=== PATIENT | female | born 1945 | race Caucasian/White ===

== ENCOUNTER → 2016-06-30 | Outpatient (CLI) | payer BC ==
[~2016-06-30] MED LIST: ASPEC81 PO; ATEN-173 PO; BIOT1CAP3 PO; CALC250T8 PO; CIPR0.3S4 OPL; CYAN10005 PO; FERR1TAB61 PO; FLUO20CA35 PO; MULT-506 PO; NAPR1TAB9 PO; PRED1SUS3; SYN112 PO; ZNTUNK PO
[2016-06-30 19:42] LABS: THYROID STIMULATING HORMONE 0.052 uIu/ml (0.300-4.500)
== END | disposition home or self-care (01) ==
LOC: C.LABMFLN 14:02
PROVIDERS: ATTEND Nurse Practitioner
DX: E03.9 Hypothyroidism, unspecified (principal)

== ENCOUNTER → 2016-07-02 | Outpatient (CLI) | payer BC ==
[2016-07-02 17:52] LABS: BLOOD UREA NITROGEN 26 mg/dl (7-18); CALCIUM 9.9 mg/dl (8.5-10.1); CARBON DIOXIDE 29 mmol/L (21-32); CHLORIDE 100 mmol/L (98-107); GLUCOSE 91 mg/dl (70-99); POTASSIUM 4.2 mmol/L (3.5-5.1); SODIUM 135 mmol/L (136-145)
== END | disposition home or self-care (01) ==
LOC: C.LABPVFM 15:32
PROVIDERS: ATTEND Nurse Practitioner
DX: N28.9 Disorder of kidney and ureter, unspecified (principal)

== ENCOUNTER → 2016-09-08 | Outpatient (CLI) | payer BC ==
--- NOTE | 2016-09-08 10:20 | DIAGNOSTIC IMAGING REPORT ---
RIGHT KNEE 3 VIEWS CLINICAL HISTORY: B/L KNEE PAIN Right pain COMPARISON: None. DISCUSSION: Moderate degenerative changes noted in all major joint compartments. There is sclerosis of the articular services throughout. There is considerable degenerative changes of patellofemoral joints bilaterally. There is no evidence for soft tissue swelling. IMPRESSION: Considerable degenerative change of all major joint compartments. Electronically signed by: Blayne Cox M.D. 09/08/2016 10:18 AM Dictated Date/Time: 09/08/2016 10:17 AM
== END | disposition home or self-care (01) ==
LOC: C.RDSM 12:19
PROVIDERS: ATTEND Physician Assistant
DX: M25.561 Pain in right knee (principal); M25.562 Pain in left knee

== ENCOUNTER → 2016-10-08 | Outpatient (CLI) | payer BC ==
[2016-10-08 19:40] LABS: THYROID STIMULATING HORMONE 0.238 uIu/ml (0.300-4.500)
== END | disposition home or self-care (01) ==
LOC: C.LABMFLN 16:17
PROVIDERS: ATTEND Nurse Practitioner
DX: E03.9 Hypothyroidism, unspecified (principal)

== ENCOUNTER → 2016-12-28 | Outpatient (CLI) | payer BC ==
[2016-12-28 18:47] LABS: THYROID STIMULATING HORMONE 18.3 uIu/ml (0.300-4.500)
== END | disposition home or self-care (01) ==
LOC: C.LABMFLN 16:51
PROVIDERS: ATTEND Nurse Practitioner
DX: E03.9 Hypothyroidism, unspecified (principal)

== ENCOUNTER → 2017-04-22 | Outpatient (CLI) | payer BC ==
[2017-04-22 12:50] LABS: ESTIMATED AVERAGE GLUCOSE 120 mg/dl; HA1C FLAG Normal (Normal)
[2017-04-22 12:53] LABS: BLOOD UREA NITROGEN 25 mg/dl (7-18); BUN/CREATININE RATIO 21.3 (10-20); CALCIUM 8.9 mg/dl (8.5-10.1); CARBON DIOXIDE 30 mmol/L (21-32); CHLORIDE 102 mmol/L (98-107); CREATININE 1.16 mg/dl (0.60-1.20); GLUCOSE 101 mg/dl (70-99); POTASSIUM 3.9 mmol/L (3.5-5.1); SODIUM 136 mmol/L (136-145)
[2017-04-22 13:04] LABS: CHOLESTEROL 204 mg/dl (0-200); CHOLESTEROL/HDL RATIO 2.8; HDL CHOLESTEROL 72 mg/dl; LDL CHOLESTEROL CALCULATED 111 mg/dl; THYROID STIMULATING HORMONE 0.417 uIu/ml (0.300-4.500); TRIGLYCERIDES 107 mg/dl (0-150); VERY LOW DENSITY LIPOPROT CALC 21 mg/dl
== END | disposition home or self-care (01) ==
LOC: C.LABMFLN 10:37
PROVIDERS: ATTEND Nurse Practitioner
DX: E78.5 Hyperlipidemia, unspecified (principal); I10 Essential (primary) hypertension; R73.01 Impaired fasting glucose; E03.9 Hypothyroidism, unspecified

== ENCOUNTER → 2017-06-22 | Outpatient (CLI) | payer BC ==
--- NOTE | 2017-06-22 15:23 | MAMMOGRAPHY REPORT ---
BILATERAL DIGITAL SCREENING MAMMOGRAM TOMOSYNTHESIS WITH CAD: 06/22/2017 CLINICAL HISTORY: Routine screening. Patient has no complaints. TECHNIQUE: Breast tomosynthesis in addition to standard 2D mammography was performed. Current study was also evaluated with a Computer Aided Detection (CAD) system. COMPARISON: Comparison is made to exams dated: 03/26/2016 mammogram, 03/07/2015 mammogram, 4 mammogram, 03/06/2013 mammogram, and 02/08/2012 mammogram - [facility]. BREAST COMPOSITION: There are scattered areas of fibroglandular density in both breasts. FINDINGS: No suspicious masses, calcifications, or areas of architectural distortion are noted in ei ther breast. There has been no significant interval change compared to prior exams. IMPRESSION: ACR BI-RADS CATEGORY 1: NEGATIVE There is no mammographic evidence of malignancy. A 1 year screening mammogram is recommended. The pa tient will receive written notification of the results. Approximately 10% of breast cancers are not detected with mammography. A negative mammographic report should not delay biopsy if a clinically suggestive mass is present. Mary Henriquez M.D. /:06/22/2017 11:04:59 [employer]: Leidy KOWALSKI)(Ryan), [facility] letter sent: Normal 1/2 BI-RADS Code: ACR BI-RADS Category 1: Negative
== END ==
LOC: C.MAMM 10:46
PROVIDERS: ATTEND Nurse Practitioner
DX: Z12.31 Encounter for screening mammogram for malignant neoplasm of breast (principal)

== ENCOUNTER → 2017-12-06 | Outpatient (CLI) | payer BC ==
[2017-12-06 17:43] LABS: BLOOD UREA NITROGEN 27 mg/dl (7-18); CALCIUM 8.9 mg/dl (8.5-10.1); CARBON DIOXIDE 30 mmol/L (21-32); CHOLESTEROL 207 mg/dl (0-200); CREATININE 1.09 mg/dl (0.60-1.20); GLUCOSE 115 mg/dl (70-99); LDL CHOLESTEROL CALCULATED 102 mg/dl; POTASSIUM 4.2 mmol/L (3.5-5.1); SODIUM 139 mmol/L (136-145)
== END | disposition home or self-care (01) ==
LOC: C.LABPVFM 14:48
PROVIDERS: ATTEND Nurse Practitioner
DX: E78.5 Hyperlipidemia, unspecified (principal); I10 Essential (primary) hypertension; R73.01 Impaired fasting glucose; E03.9 Hypothyroidism, unspecified

== ENCOUNTER → 2017-12-06 | Outpatient (CLI) | payer BC | END | disposition home or self-care (01) | LOC: C.PAPS 19:04 | PROVIDERS: ATTEND Nurse Practitioner | DX: N95.1 Menopausal and female climacteric states (principal) ==

== ENCOUNTER 2019-02-12 16:08 | Inpatient (IN) ==
[2019-02-12] MEDS ORDERED: ONDANSETRON INJ 2 MG/ML 2 ML VIAL IV STA (17:03)
[2019-02-12] MEDS ORDERED: SODIUM CHLORIDE 0.9% 1000ML 1,000 ML IV ONE (17:03)
--- NOTE | 2019-02-12 17:16 | XRay Report ---
SINGLE VIEW CHEST CLINICAL HISTORY: Epigastric abdominal pain. FINDINGS: An AP, portable, upright chest radiograph is compared to study dated 02/04/2010. The examina tion is degraded by portable technique and patient rotation. A left subclavian central venous infusio n port is new from 2009. The heart is mildly enlarged and there is atherosclerotic calcification of t he thoracic aorta. The pulmonary vasculature is noncongested. Chronic interstitial thickening is mp lar to previous. No airspace consolidation or large pleural effusion is identified. Foci of scarring/ atelectasis are present in both lungs. Apical scarring is also noted. No pneumothorax is seen. The sk eletal structures are osteopenic. The bony thorax is grossly intact. A right shoulder arthroplasty is in place. IMPRESSION: Mild cardiomegaly with no active disease in the chest. Electronically signed by: Jama Ladd M.D. 02/12/2019 5:15 PM
[2019-02-12] MEDS ORDERED: ALBUTEROL HFA 8 GM INHALER INH ONE (18:51)
[2019-02-12] MEDS ORDERED: ALBUTEROL HFA 8 GM INHALER ONE (19:05)
[2019-02-12 19:10] LABS: Hematocrit (blood only) 19.6 % (37-47); Hemoglobin 6.7 g/dL (12.0-16.0); Mean Corpuscular Hemoglobin 33.2 pg (25-34); Mean Corpuscular Hgb Conc 34.2 g/dL (32-36); Mean Platelet Volume 9.2 fL (7.4-10.4); Platelet Count 185 K/uL (130-400); RDW Coefficient of Variation 14.5 % (11.5-14.5); RDW Standard Deviation 51.9 fL (36.4-46.3); Red Blood Count 2.02 M/uL (4.2-5.4); White Blood Count 12.59 K/uL (4.8-10.8)
[2019-02-12] MEDS ORDERED: SODIUM CHLORIDE 0.9% 250 ML IV PRN (19:12)
[2019-02-12 19:17] LABS: Alanine Aminotransferase 17 U/L (12-78); Albumin Level 3.2 gm/dl (3.4-5.0); Aspartate Aminotransferase 14 U/L (15-37); BUN Creatinine Ratio 11.3 (10-20); Blood Urea Nitrogen 11 mg/dl (7-18); Calcium 8.5 mg/dl (8.5-10.1); Carbon Dioxide 28 mmol/L (21-32); Chloride 97 mmol/L (98-107); Est GFR (African American) 69.2; Est GFR (Non-African American) 59.7; Glucose 83 mg/dl (70-99); Lipase 75 U/L (73-393); Magnesium 1.6 mg/dl (1.8-2.4); Potassium 3.8 mmol/L (3.5-5.1); Sodium 133 mmol/L (136-145)
[2019-02-12 19:21] LABS: Basophils # (auto) 0.01 K/uL (0-0.2); Basophils % (auto) 0.1 %; Eosinophils # (auto) 0.01 K/uL (0-0.5); Eosinophils % (auto) 0.1 %; Immature Granulocytes # (auto) 0.07 K/uL (0.00-0.02); Immature Granulocytes % (auto) 0.6 %; Lymphocytes # (auto) 1.56 K/uL (1.2-3.4); Lymphocytes % (auto) 12.4 %; Monocytes # (auto) 0.75 K/uL (0.11-0.59); Neutrophils # (auto) 10.19 K/uL (1.4-6.5); Neutrophils % (auto) 80.8 %; Toxic Granulation 1+
[2019-02-12] MEDS ORDERED: MAGNESIUM SULFATE / D5W 1 GM/100 ML BAG IV ONE (19:21)
[2019-02-12 19:23] LABS: Alkaline Phosphatase 87 U/L (45-117); Bilirubin,Total 0.4 mg/dl (0.2-1); Globulin 3.2 gm/dl (2.5-4.0); Total Protein 6.4 gm/dl (6.4-8.2); Troponin I < 0.015 ng/ml (0-0.045)
[2019-02-12] MEDS ORDERED: IOVERSOL 100ml IV PRN (19:44)
--- NOTE | 2019-02-12 20:01 | CT Scan Report ---
CT SCAN OF THE ABDOMEN AND PELVIS WITH IV CONTRAST CLINICAL HISTORY: Generalized abdominal pain. COMPARISON STUDY: Abdominal ultrasound dated 12/15/2015. TECHNIQUE: Following the IV administration of 93 cc of Optiray 320, CT scan of the abdomen and pelvi s is performed from the lung bases to the proximal femora. Images are reviewed in the axial, sagittal , and coronal planes. IV contrast was administered without complication. A dose lowering technique wa s utilized adhering to the principles of ALARA. CT DOSE: 247.06 mGy.cm FINDINGS: Lung bases: The heart is normal in size and without pericardial effusion. The coronary arteries are d ensely calcified. The lung bases are clear noting bibasilar scarring/atelectasis. Liver: The contrast-enhanced liver is normal in size, contour, and attenuation. There is no intrahepa tic biliary ductal dilatation. The hepatic veins and portal veins are patent. Gallbladder: Unremarkable. Spleen: Normal in size and attenuation. Pancreas: Moderately atrophic and grossly unremarkable. Adrenal glands: Unremarkable. Kidneys: The contrast enhanced kidneys demonstrate mild cortical atrophy and are without hydronephros is. The kidneys enhance symmetrically. Abdominal vasculature: The abdominal aorta is normal in course and caliber noting advanced atheroscle rotic calcification. Bowel: The gastric mucosa appears thickened and hyperemic. A left inguinal hernia contains a nonobstr ucted loop of small bowel. No bowel obstruction is seen. The small bowel loops are filled with fluid. No bowel wall thickening is identified. The appendix is well-visualized and normal. Peritoneum: There is no intraperitoneal free air or abdominal ascites. Lymphadenopathy: None. Pelvic viscera: The bladder, uterus, and adnexa are normal as imaged. A left inguinal hernia contains a loop of bowel. Skeletal structures: The skeletal structures are osteopenic. There is moderate lumbosacral spondylosi s as well as scoliosis. Grade 1 anterolisthesis is noted at L4-L5. No lytic or blastic lesions are se en. Soft tissues: The patient is cachectic. IMPRESSION: 1. There is fluid seen throughout the normal caliber small bowel loops. No bowel wall thickening is i dentified, and the appearance suggests a nonspecific enteritis. Clinical correlation will be required . 2. A left inguinal hernia contains a nonobstructed loop of small bowel. 3. The gastric mucosa appears thickened and hyperemic. Correlate clinically for evidence of gastritis . 4. Additional findings as above. Electronically signed by: Jama Ladd M.D. 02/12/2019 7:59 PM
[2019-02-12] MEDS ORDERED: PANTOprazole 80 MG in DEXTROSE 5% 100 ML IV ONE (20:15)
[2019-02-12 20:33] LABS: Appearance Urine Clear (Clear); Bilirubin Urine Negative (Negative); Blood Urine Negative (Negative); Color Urine Yellow; Epithelial Cell Urine Auto >30 /lpf (0-5); Glucose Urine UA Negative (Negative); Ketones Urine 1+ (Negative); Leukocyte Esterase Urine 1+ (Negative); Nitrite Urine Negative (Negative); Protein Urine Negative (Negative); RBC Urine Automated 0-4 /hpf (0-4); Specific Gravity Urine 1.023 (1.000-1.030); Urobilinogen Urine Negative (Negative); pH Urine 6.5 (4.5-7.5)
[2019-02-12 20:41] LABS: Mucus Urine Present (None Prsent)
[2019-02-12 20:42] LABS: Bacteria Urine Automated 1+ (Negative)
[2019-02-12] MEDS: PANTOprazole 40 MG in DEXTROSE 5% 100 ML IV SCH (21:06)
--- NOTE | 2019-02-12 22:39 | Emergency Department Note ---
Entered by Lesly Quesada acting as a scribe for History of Present Illness General Chief complaint: Abdominal Pain Stated complaint: NAUSEA, STOMACH PAIN Time Seen by Provider: 02/12/19 16:56 Source: patient History of Present Illness Provider complaint: Abdominal Pain Onset (ago): week(s) 1 Location: abdomen Radiation: non-radiation Pain Consistency: + intermittent Maximum Pain Intensity: 4 Associated symptoms: + loss of appetite and + nausea/vomiting (Positive nausea. Negative vomiting.) The patient is a 74 year old female who presents to the Emergency Room with complaints of intermittent abdominal pain that began 1 week ago. The patient states the pain does not radiate anywhere else on her body. The patient reports experiencing nausea and loss of appetite but denies any vomiting. The patient notes that her last chemotherapy was on January 29. The patient was referred here by the oncology center. They were concerned that her presentation today was more than just a reaction from her chemotherapy. Patient denies any fever. There has been no diarrhea. She has not had cough, cold or congestion. She denies any abdominal trauma. She has not noticed black or bloody stool. Home Medications Home Medications Medication Instructions Recorded Confirmed Type atenolol 25 mg tablet 25 mg PO DAILY #90 tab 11/20/18 02/12/19 Rx calcium citrate 250 mg 1 tab PO DAILY tab 11/20/18 02/12/19 History calcium-vitamin D3 200 unit tablet cyanocobalamin (vit B-12) 500 mcg 500 mcg PO DAILY #30 tab 11/20/18 02/12/19 Rx tablet ferrous gluconate 240 mg (27 mg 240 mg PO DAILY tab 11/20/18 02/12/19 History iron) tablet fluoxetine 20 mg capsule 20 mg PO DAILY #30 cap 11/20/18 02/12/19 Rx multivitamin tablet 1 tab PO DAILY 11/20/18 02/12/19 History levothyroxine 75 mcg tablet 75 mcg PO DAILY #30 tab 11/28/18 02/12/19 Rx ondansetron HCl [Zofran] 8 mg PO Q8 PRN 02/12/19 02/12/19 History promethazine 25 mg PO Q6 PRN 02/12/19 02/12/19 History Allergies Allergy/AdvReac Type Severity Reaction Status Date / Time No Known Allergies Allergy Unverified 02/12/19 21:55 Past Med/Surg History Medical History Coronary disease Renal insufficiency, mild Infiltrating duct adenocarcinoma Impaired fasting glucose Hypothyroidism Hypertension Dyslipidemia Depression with anxiety Anemia, chronic disease Surgical History History of tubal ligation History of shoulder surgery History of oral surgery tooth extraction History of dilation and curettage History of cataract surgery Family History Father Coronary heart disease Mother Lung cancer Social History Feels Safe at Home: Yes Smoking Status: Never smoker Review of Systems See HPI for pertinent positives & negatives. and A total of 10 systems reviewed and were otherwise negative Physical Exam Vital Signs Vital Signs - 24 hr 02/12/19 16:14 02/12/19 18:00 02/12/19 18:34 Temperature 36.7 C Temperature Source Oral Sepsis Recent Fever Within 48 Hours No Sepsis New/Unexplained Change in Mental Status No Sepsis Action Taken by Nursing No Action Required Pulse Rate 83 92 H Pulse Rate from SpO2 Sensor Respiratory Rate 20 20 Blood Pressure 142/80 H 141/78 H Blood Pressure Mean 100 99 Pulse Oximetry 100 Oxygen Delivery Method Room Air Room Air 02/12/19 18:38 02/12/19 18:45 02/12/19 18:46 Temperature Temperature Source Sepsis Recent Fever Within 48 Hours Sepsis New/Unexplained Change in Mental Status Sepsis Action Taken by Nursing Pulse Rate 79 77 82 Pulse Rate from SpO2 Sensor Respiratory Rate 12 16 20 Blood Pressure 140/79 Blood Pressure Mean 99 Pulse Oximetry Oxygen Delivery Method 02/12/19 19:00 02/12/19 19:15 02/12/19 20:00 Temperature Temperature Source Sepsis Recent Fever Within 48 Hours Sepsis New/Unexplained Change in Mental Status Sepsis Action Taken by Nursing Pulse Rate 78 76 83 Pulse Rate from SpO2 Sensor 84 Respiratory Rate 18 13 13 Blood Pressure 144/70 H 138/75 132/80 Blood Pressure Mean 94 96 97 Pulse Oximetry 100 Oxygen Delivery Method 02/12/19 20:15 02/12/19 20:30 02/12/19 20:31 Temperature Temperature Source Sepsis Recent Fever Within 48 Hours Sepsis New/Unexplained Change in Mental Status Sepsis Action Taken by Nursing Pulse Rate 76 75 76 Pulse Rate from SpO2 Sensor Respiratory Rate 19 11 L 9 L Blood Pressure 146/76 H Blood Pressure Mean 99 Pulse Oximetry Oxygen Delivery Method 02/12/19 20:45 02/12/19 21:00 02/12/19 21:15 Temperature Temperature Source Sepsis Recent Fever Within 48 Hours Sepsis New/Unexplained Change in Mental Status Sepsis Action Taken by Nursing Pulse Rate 76 75 99 H Pulse Rate from SpO2 Sensor Respiratory Rate 13 16 18 Blood Pressure 136/68 Blood Pressure Mean 90 Pulse Oximetry Oxygen Delivery Method 02/12/19 21:33 02/12/19 21:45 Temperature Temperature Source Sepsis Recent Fever Within 48 Hours Sepsis New/Unexplained Change in Mental Status Sepsis Action Taken by Nursing Pulse Rate 104 H 79 Pulse Rate from SpO2 Sensor Respiratory Rate 16 17 Blood Pressure Blood Pressure Mean Pulse Oximetry Oxygen Delivery Method GENERAL: Patient is in no acute distress. HEENT: No acute trauma, normocephalic atraumatic, mucous membranes dry, no nasal congestion, no scleral icterus. NECK: No stridor, no adenopathy, no meningismus, trachea is midline. LUNGS: Clear to auscultation bilaterally, no wheeze, no rhonchi, breath sounds equal. HEART: Subtle systolic murmur. Regular rate and rhythm. ABDOMEN: Soft, nontender, bowel sounds positive, no hernias, no peritonitis. EXTREMITIES: No cyanosis or edema, full range of motion of all the joints without pain or difficulty, no signs for acute trauma. NEUROLOGIC: Oriented x 3, no acute motor or sensory deficits, no focal weakness. SKIN: No rash, no jaundice, no diaphoresis. Rectal exam: Brown stool, heme positive. Course 1657: Past medical records reviewed. The patient was evaluated in room B02. A complete history and physical exam was performed. 1809: I reevaluated and discussed test results with the patient. 2010: I performed a rectal exam and there was brown stool which was heme positive. 2029: I spoke with Dr. Martins- Hospitalist about the patient's case and he will accept the patient for further evaluation. Administered Medications Pantoprazole Sodium 40 mg/ (Dextrose) 100 mls @ 20 mls/hr IV Q5H SARAH Stop: 03/14/19 20:29 Last Admin: 02/12/19 21:06 Dose: 20 mls/hr Documented by: [id number] Ioversol (Optiray 320 100ml) 93 ml IV ONCE PRN PRN Reason: Interaction Checking Stop: 02/16/19 19:43 Last Admin: 02/12/19 19:44 Dose: 93 ml Documented by: [id number] Discontinued Medications Albuterol (Ventolin Hfa) 3 puffs INH NOW ONE Stop: 02/12/19 18:52 Last Admin: 02/12/19 19:10 Dose: Not Given Documented by: [id number] Albuterol (Ventolin Hfa) Confirm Administered Dose 60 puffs .ROUTE .STK-MED ONE Stop: 02/12/19 19:06 Last Admin: 02/12/19 19:10 Dose: Not Given Documented by: [id number] Sodium Chloride (Nss 1000ml) 1,000 mls @ 999 mls/hr IV .Q1H1M ONE Stop: 02/12/19 18:03 Last Admin: 02/12/19 19:02 Dose: 999 mls/hr Documented by: [id number] Magnesium Sulfate/Dextrose (Magnesium Sulfate / D5w) 1 gm in 100 mls @ 100 mls/hr IV ONE ONE Stop: 02/12/19 20:20 Last Infusion: 02/12/19 21:01 Dose: 0 mls/hr Documented by: [id number] Admin: 02/12/19 20:01 Dose: 100 mls/hr Documented by: [id number] Pantoprazole Sodium 80 mg/ (Dextrose) 120 mls @ 480 mls/hr IV NOW ONE Stop: 02/12/19 20:29 Last Admin: 02/12/19 20:45 Dose: 480 mls/hr Documented by: [id number] Ondansetron HCl (Zofran) 4 mg IV NOW STA Stop: 02/12/19 17:04 Last Admin: 02/12/19 19:03 Dose: 4 mg Documented by: [id number] Medical Decision Making Differential Diagnosis Differential Diagnosis Includes: Dehydration, constipation, GI bleeding, anemia, bowel obstruction, pancreatitis, diverticulitis, viral illness, renal failure, electrolyte imbalance, pneumonia, PA. Medical Records Attestation: I reviewed the patient's medical records. Home Medications Current Medication List: was personally reviewed by me Laboratory Data Attestation: I reviewed the patient's lab results. Result diagrams: 02/12/19 18:40 02/12/19 18:40 Lab Results 10/07/19 10/07/19 10/07/19 Range/Units 18:40 18:40 19:22 WBC 12.59 H (4.8-10.8) K/uL RBC 2.02 L (4.2-5.4) M/uL Hgb 6.7 L* (12.0-16.0) g/dL Hct 19.6 L* (37-47) % MCV 97.0 (80-100) fL MCH 33.2 (25-34) pg MCHC 34.2 (32-36) g/dL RDW Std Deviation 51.9 H (36.4-46.3) fL RDW Coeff of Ricki 14.5 (11.5-14.5) % Plt Count 185 (130-400) K/uL MPV 9.2 (7.4-10.4) fL Immature Gran % (Auto) 0.6 % Neut % (Auto) 80.8 % Lymph % (Auto) 12.4 % Phelps % (Auto) 6.0 % Eos % (Auto) 0.1 % Baso % (Auto) 0.1 % Immature Gran # (Auto) 0.07 H (0.00-0.02) K/uL Neut # (Auto) 10.19 H (1.4-6.5) K/uL Lymph # (Auto) 1.56 (1.2-3.4) K/uL Phelps # (Auto) 0.75 H (0.11-0.59) K/uL Eos # (Auto) 0.01 (0-0.5) K/uL Baso # (Auto) 0.01 (0-0.2) K/uL Toxic Granulation 1+ Sodium 133 L (136-145) mmol/L Potassium 3.8 (3.5-5.1) mmol/L Chloride 97 L (98-107) mmol/L Carbon Dioxide 28 (21-32) mmol/L Anion Gap 8.0 (3-11) BUN 11 (7-18) mg/dl Creatinine 0.93 (0.6-1.2) mg/dl Est Cr Clr Drug Dosing Not Reportable Est GFR ( Amer) 69.2 Est GFR (Non-Af Amer) 59.7 BUN/Creatinine Ratio 11.3 (10-20) Glucose 83 (70-99) mg/dl Calcium 8.5 (8.5-10.1) mg/dl Magnesium 1.6 L (1.8-2.4) mg/dl Total Bilirubin 0.4 (0.2-1) mg/dl AST 14 L (15-37) U/L ALT 17 (12-78) U/L Alkaline Phosphatase 87 (45-117) U/L Troponin I < 0.015 (0-0.045) ng/ml Total Protein 6.4 (6.4-8.2) gm/dl Albumin 3.2 L (3.4-5.0) gm/dl Globulin 3.2 (2.5-4.0) gm/dl Albumin/Globulin Ratio 1.0 (0.9-2) Lipase 75 (73-393) U/L Urine Color Urine Appearance (Clear) Urine pH (4.5-7.5) Ur Specific Vernon (1.000-1.030) Urine Protein (Negative) Urine Glucose (UA) (Negative) Urine Ketones (Negative) Urine Blood (Negative) Urine Nitrite (Negative) Urine Bilirubin (Negative) Urine Urobilinogen (Negative) Ur Leukocyte Esterase (Negative) Urine WBC (Auto) (0-5) /hpf Urine RBC (Auto) (0-4) /hpf U Hyaline Cast (Auto) (0-5) /lpf U Epithel Cells (Auto) (0-5) /lpf Urine Bacteria (Auto) (Negative) Ur Renal Epithelial Cell Urine Mucus (None Prsent) Blood Type A Positive Antibody Screen NEGATIVE Crossmatch See Detail 02/12/19 Range/Units 20:00 WBC (4.8-10.8) K/uL RBC (4.2-5.4) M/uL Hgb (12.0-16.0) g/dL Hct (37-47) % MCV (80-100) fL MCH (25-34) pg MCHC (32-36) g/dL RDW Std Deviation (36.4-46.3) fL RDW Coeff of Ricki (11.5-14.5) % Plt Count (130-400) K/uL MPV (7.4-10.4) fL Immature Gran % (Auto) % Neut % (Auto) % Lymph % (Auto) % Phelps % (Auto) % Eos % (Auto) % Baso % (Auto) % Immature Gran # (Auto) (0.00-0.02) K/uL Neut # (Auto) (1.4-6.5) K/uL Lymph # (Auto) (1.2-3.4) K/uL Phelps # (Auto) (0.11-0.59) K/uL Eos # (Auto) (0-0.5) K/uL Baso # (Auto) (0-0.2) K/uL Toxic Granulation Sodium (136-145) mmol/L Potassium (3.5-5.1) mmol/L Chloride (98-107) mmol/L Carbon Dioxide (21-32) mmol/L Anion Gap (3-11) BUN (7-18) mg/dl Creatinine (0.6-1.2) mg/dl Est Cr Clr Drug Dosing Est GFR ( Amer) Est GFR (Non-Af Amer) BUN/Creatinine Ratio (10-20) Glucose (70-99) mg/dl Calcium (8.5-10.1) mg/dl Magnesium (1.8-2.4) mg/dl Total Bilirubin (0.2-1) mg/dl AST (15-37) U/L ALT (12-78) U/L Alkaline Phosphatase (45-117) U/L Troponin I (0-0.045) ng/ml Total Protein (6.4-8.2) gm/dl Albumin (3.4-5.0) gm/dl Globulin (2.5-4.0) gm/dl Albumin/Globulin Ratio (0.9-2) Lipase (73-393) U/L Urine Color Yellow Urine Appearance Clear (Clear) Urine pH 6.5 (4.5-7.5) Ur Specific Vernon 1.023 (1.000-1.030) Urine Protein Negative (Negative) Urine Glucose (UA) Negative (Negative) Urine Ketones 1+ H (Negative) Urine Blood Negative (Negative) Urine Nitrite Negative (Negative) Urine Bilirubin Negative (Negative) Urine Urobilinogen Negative (Negative) Ur Leukocyte Esterase 1+ H (Negative) Urine WBC (Auto) 10-30 H (0-5) /hpf Urine RBC (Auto) 0-4 (0-4) /hpf U Hyaline Cast (Auto) 5-10 H (0-5) /lpf U Epithel Cells (Auto) >30 H (0-5) /lpf Urine Bacteria (Auto) 1+ H (Negative) Ur Renal Epithelial Cell Not Reportable Urine Mucus Present A (None Prsent) Blood Type Antibody Screen Crossmatch Imaging Data Radiologist's Impression: Radiology results as stated below per my review and the radiologist's interpretation: SINGLE VIEW CHEST CLINICAL HISTORY: Epigastric abdominal pain. FINDINGS: An AP, portable, upright chest radiograph is compared to study dated 02/04/2010. The examination is degraded by portable technique and patient rotation. A left subclavian central venous infusion port is new from 2009. The heart is mildly enlarged and there is atherosclerotic calcification of the thora cic aorta. The pulmonary vasculature is noncongested. Chronic interstitial thickening is similar to previous. No airspace consolidation or large pleural effusion is identified. Foci of scarring/atelectasis are present in both lungs. Apical scarring is also noted. No pneumothorax is seen. The skeletal structures are osteopenic. The bony thorax is grossly intact. A right shoulder arthroplasty is in place. IMPRESSION: Mild cardiomegaly with no active disease in the chest. Electronically signed by: Jama Ladd M.D. 02/12/2019 5:[address] SCAN OF THE ABDOMEN AND PELVIS WITH IV CONTRAST CLINICAL HISTORY: Generalized abdominal pain. COMPARISON STUDY: Abdominal ultrasound dated 12/15/2015. TECHNIQUE: Following the IV administration of 93 cc of Optiray 320, CT scan of the abdomen and pelvis is performed from the lung bases to the proximal femora. Images are reviewed in the axial, sagittal, and coronal planes. IV contrast was administered without complication. A dose lowering technique was utilized adhering to the principles of ALARA. CT DOSE: 247.06 mGy.cm FINDINGS: Lung bases: The heart is normal in size and without pericardial effusion. The coronary arteries are densely calcified. The lung bases are clear noting bibasilar scarring/atelectasis. Liver: The contrast-enhanced liver is normal in size, contour, and attenuation. There is no intrahepatic biliary ductal dilatation. The hepatic veins and portal veins are patent. Gallbladder: Unremarkable. Spleen: Normal in size and attenuation. Pancreas: Moderately atrophic and grossly unremarkable. Adrenal glands: Unremarkable. Kidneys: The contrast enhanced kidneys demonstrate mild cortical atrophy and are without hydronephrosis. The kidneys enhance symmetrically. Abdominal vasculature: The abdominal aorta is normal in course and caliber noting advanced atherosclerotic calcification. Bowel: The gastric mucosa appears thickened and hyperemic. A left inguinal hernia contains a nonobstructed loop of small bowel. No bowel obstruction is seen. The small bowel loops are filled with fluid. No bowel wall thickening is identified. The appendix is well-visualized and normal. Peritoneum: There is no intraperitoneal free air or abdominal ascites. Lymphadenopathy: None. Pelvic viscera: The bladder, uterus, and adnexa are normal as imaged. A left inguinal hernia contains a loop of bowel. Skeletal structures: The skeletal structures are osteopenic. There is moderate lumbosacral spondylosis as well as scoliosis. Grade 1 anterolisthesis is noted at L4-L5. No lytic or blastic lesions are seen. Soft tissues: The patient is cachectic. IMPRESSION: 1. There is fluid seen throughout the normal caliber small bowel loops. No bowel wall thickening is identified, and the appearance suggests a nonspecific enteritis. Clinical correlation will be required. 2. A left inguinal hernia contains a nonobstructed loop of small bowel. 3. The gastric mucosa appears thickened and hyperemic. Correlate clinically for evidence of gastritis. 4. Additional findings as above. Electronically signed by: Jama Ladd M.D. 02/12/2019 7:59 PM ECG Data Attestation: I personally reviewed and interpreted this ECG as follows: Indication: abdominal pain Rate (beats per minute): 75 Rhythm: normal sinus Findings: + other (QTC 439) and + nonspecific-ST abn; no ST elevation Blood Pressure Blood Pressure Findings: Elevated blood pressure Blood Pressure Disposition: further management by hospitalist [facility] Narrative There is a mild leukocytosis at 12,000, this could be consistent with infection or just her pain. The patient is quite anemic with a hemoglobin of 6.7. I did perform a rectal exam, the stool was brown and heme positive. There is no kidney failure. Magnesium is low at 1.6. No concerning liver enzyme elevation. No evidence for pancreatitis. EKG shows a sinus rhythm, no acute ischemia. Cardiac enzyme testing x1 is not consistent with acute cardiac injury. Urinalysis shows some contamination, no infection. Blood type is A+. Chest film does not show free air or pneumonia. Abdominal and pelvis CT suggests an ileus. No bowel obstruction. No abscess seen. Some gastritis was suspected. No acute surgical process by CT imaging. On exam, the patient did not really have a tender abdomen, there was clearly no peritonitis. Patient received IV saline for hydration. She was given a bolus of IV Protonix and placed on a Protonix drip. She received IV magnesium and IV Zofran. Blood was ordered for transfusion but not given while in the ED. The patient presents with abdominal discomfort. She was dehydrated on exam. She is anemic, this is likely from her chemotherapy in addition to some GI bleeding-her stool is heme positive. Given her findings and history, I do think a hospitalization is warranted. I spoke to the patient and case management. The on-call hospitalist was consulted. Impression & Plan Diffuse abdominal pain, Anemia, Heme positive stool, Status post chemotherapy, Hypomagnesemia Critical Care Time Critical Care Time: Yes Total Critical Care Time: 36 I have personally spent 36 minutes of critical care time in the direct management of this patient. This includes bedside care, interpretation of diagnostic studies, and testing, discussion with consultants, patient, and family members, and other required patient management activities. This 36 minutes is in excess of all separately billable procedures. Discharge Plan Visit Data Chief Complaint: Abdominal Pain Stated Complaint: NAUSEA, STOMACH PAIN ED Provider: Jama Esquivel Discharge Problem: Diffuse abdominal pain, Anemia, Heme positive stool, Status post chemotherapy, Hypomagnesemia Forms Stand Alone Forms: Call Back Authorization, [facility] Prescriptions Prescriptions: No Action calcium citrate-vitamin D3 [Citracal Regular] 250 mg calcium- 200 unit tablet 1 tab PO DAILY RF: 0 ferrous gluconate 240 mg (27 mg iron) tablet 240 mg PO DAILY RF: 0 multivitamin [Daily Multiple] tablet 1 tab PO DAILY RF: 0 atenolol 25 mg tablet 25 mg PO DAILY Qty: 90 RF: 0 cyanocobalamin (vitamin B-12) 500 mcg tablet 500 mcg PO DAILY Qty: 30 RF: 0 fluoxetine 20 mg capsule 20 mg PO DAILY Qty: 30 RF: 0 levothyroxine 75 mcg tablet 75 mcg PO DAILY Qty: 30 RF: 5 ondansetron HCl [Zofran] 8 mg tablet 8 mg PO Q8 PRN (Reason: Nausea) RF: 0 promethazine 25 mg tablet 25 mg PO Q6 PRN (Reason: Nausea) RF: 0 Discharge Problem: Anemia Qualifiers: Anemia type: unspecified type Qualified Code(s): D64.9 - Anemia, unspecified The scribe's documentation has been prepared under my direction and personally reviewed by me in its entirety. I confirm that the note above accurately reflects all work, treatment, procedures, and medical decision making performed by me.
--- NOTE | 2019-02-12 23:49 | History & Physical Report ---
Date of Service February 12, 2019 Assessment & Plan (1) Anemia: 1 unit PRBCs ordered recheck HGB in am (2) Heme positive stool: She may have developed gastritis or ulcer, as her pain was located in epigastric region. IV Protonix given. 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 Pain and nausea control ordered. DVT prophylaxis = SCDs, holding pharmacologic due to anemia and heme pos stool. (4) Hypertension: Stable (5) Hypothyroidism: Continue levothyroxine History of Present Illness 74 y/o female presented to the ED with intermittent abdominal pain of 1 week duration. She has had nausea and loss of appetite, but reports that this is common after chemo treatments. She has not had F/C, cough, diarrhea, chest pain or SOB. She does report feeling tired. No reported black stools or bloody stool. In the ED her stool was heme Pos. Primary Care Provider: ANITA Storm Allergies Allergy/AdvReac Type Severity Reaction Status Date / Time No Known Allergies Allergy Unverified 02/12/19 21:55 Home Medications Home Medications Medication Instructions Recorded Confirmed Type atenolol 25 mg tablet 25 mg PO DAILY #90 tab 11/20/18 02/12/19 Rx calcium citrate 250 mg 1 tab PO DAILY tab 11/20/18 02/12/19 History calcium-vitamin D3 200 unit tablet cyanocobalamin (vit B-12) 500 mcg 500 mcg PO DAILY #30 tab 11/20/18 02/12/19 Rx tablet ferrous gluconate 240 mg (27 mg 240 mg PO DAILY tab 11/20/18 02/12/19 History iron) tablet fluoxetine 20 mg capsule 20 mg PO DAILY #30 cap 11/20/18 02/12/19 Rx multivitamin tablet 1 tab PO DAILY 11/20/18 02/12/19 History levothyroxine 75 mcg tablet 75 mcg PO DAILY #30 tab 11/28/18 02/12/19 Rx ondansetron HCl [Zofran] 8 mg PO Q8 PRN 02/12/19 02/12/19 History promethazine 25 mg PO Q6 PRN 02/12/19 02/12/19 History Past Med/Surg History Medical History Coronary disease Renal insufficiency, mild Infiltrating duct adenocarcinoma Impaired fasting glucose Hypothyroidism Hypertension Dyslipidemia Depression with anxiety Anemia, chronic disease Surgical History History of tubal ligation History of shoulder surgery History of oral surgery tooth extraction History of dilation and curettage History of cataract surgery Family History Father Coronary heart disease Mother Lung cancer Social History Feels Safe at Home: Yes Smoking Status: Never smoker Review of Systems Review of Systems: NEEDS EDITING Constitutional- no fever; no weight loss Eyes- no acute visual changes ENT- no sinus drainage; no pharyngitis Pulmonary- no cough, no wheezing, no shortness of breath Cardiac- no chest pain, no palpitations, no orthopnea, no dependent edema GI- As in HPI - no dysuria, no hematuria Musculoskeletal- no arthralgias, no myalgias Derm- no rashes, no new skin lesions, no changing skin lesions Hematologic- no unusual bruising, no unusual bleeding Lymphatics- no adenopathy Endocrine- no polyuria or polydipsia; no heat or cold intolerance Neuro- no headaches, no focal neurologic symptoms Psych- no depression. She is anxious at times. Physical Exam Physical Exam: NEEDS EDITING General- adult female, NAD Head- atraumatic Eyes- PERRL, EOMI, anicteric ENT- oropharynx clear Neck- supple, no JVD, no adenopathy, no thyromegaly. Lungs- clear to auscultation, No rales, rhonchi, or wheezes. Heart- regular rhythm; no murmur, no gallop, no rub appreciated Abdomen- normal bowel sounds, soft, nontender. Extremities- no pretibial edema, no calf tenderness; peripheral pulses intact Neuro- alert, oriented x 3; PERRL, EOMI; senior lead project manager II-XII grossly intact, Non-focal. Skin- warm & dry Results & Data Vital Signs (Past 12 Hours) Vital Signs Temp Pulse Pulse Resp BP BP Pulse Ox 02/12/19 23:34 36.4 C L 72 13 129/66 97 02/12/19 22:45 71 12 02/12/19 22:30 72 12 02/12/19 22:15 72 10 L 02/12/19 22:00 84 15 02/12/19 21:45 79 17 02/12/19 21:33 104 H 16 02/12/19 21:15 99 H 18 02/12/19 21:00 75 16 136/68 02/12/19 20:45 76 13 02/12/19 20:31 76 9 L 02/12/19 20:30 75 11 L 146/76 H 02/12/19 20:15 76 19 02/12/19 20:00 83 13 132/80 100 02/12/19 19:15 76 13 138/75 02/12/19 19:00 78 18 144/70 H 02/12/19 18:46 82 20 02/12/19 18:45 77 16 140/79 02/12/19 18:38 79 12 02/12/19 18:34 92 H 20 141/78 H 02/12/19 16:14 36.7 C 83 20 142/80 H 100 Laboratory Results Laboratory Results WBC 12.59 K/uL (4.8-10.8) H 02/12/19 18:40 RBC 2.02 M/uL (4.2-5.4) L 02/12/19 18:40 Hgb 6.7 g/dL (12.0-16.0) L* 02/12/19 18:40 Hct 19.6 % (37-47) L* 02/12/19 18:40 MCV 97.0 fL (80-100) 02/12/19 18:40 MCH 33.2 pg (25-34) 02/12/19 18:40 MCHC 34.2 g/dL (32-36) 02/12/19 18:40 RDW Std Deviation 51.9 fL (36.4-46.3) H 02/12/19 18:40 RDW Coeff of Ricki 14.5 % (11.5-14.5) 02/12/19 18:40 Plt Count 185 K/uL (130-400) 02/12/19 18:40 MPV 9.2 fL (7.4-10.4) 02/12/19 18:40 Immature Gran % (Auto) 0.6 % 02/12/19 18:40 Neut % (Auto) 80.8 % 02/12/19 18:40 Lymph % (Auto) 12.4 % 02/12/19 18:40 Door % (Auto) 6.0 % 02/12/19 18:40 Eos % (Auto) 0.1 % 02/12/19 18:40 Baso % (Auto) 0.1 % 02/12/19 18:40 Immature Gran # (Auto) 0.07 K/uL (0.00-0.02) H 02/12/19 18:40 Neut # (Auto) 10.19 K/uL (1.4-6.5) H 02/12/19 18:40 Lymph # (Auto) 1.56 K/uL (1.2-3.4) 02/12/19 18:40 Door # (Auto) 0.75 K/uL (0.11-0.59) H 02/12/19 18:40 Eos # (Auto) 0.01 K/uL (0-0.5) 02/12/19 18:40 Baso # (Auto) 0.01 K/uL (0-0.2) 02/12/19 18:40 Toxic Granulation 1+ 02/12/19 18:40 Sodium 133 mmol/L (136-145) L 02/12/19 18:40 Potassium 3.8 mmol/L (3.5-5.1) 02/12/19 18:40 Chloride 97 mmol/L (98-107) L 02/12/19 18:40 Carbon Dioxide 28 mmol/L (21-32) 02/12/19 18:40 Anion Gap 8.0 (3-11) 02/12/19 18:40 BUN 11 mg/dl (7-18) 02/12/19 18:40 Creatinine 0.93 mg/dl (0.6-1.2) 02/12/19 18:40 Est Cr Clr Drug Dosing Not Reportable 02/12/19 18:40 Est GFR ( Amer) 69.2 02/12/19 18:40 Est GFR (Non-Af Amer) 59.7 02/12/19 18:40 BUN/Creatinine Ratio 11.3 (10-20) 02/12/19 18:40 Glucose 83 mg/dl (70-99) 02/12/19 18:40 Calcium 8.5 mg/dl (8.5-10.1) 02/12/19 18:40 Magnesium 1.6 mg/dl (1.8-2.4) L 02/12/19 18:40 Total Bilirubin 0.4 mg/dl (0.2-1) 02/12/19 18:40 AST 14 U/L (15-37) L 02/12/19 18:40 ALT 17 U/L (12-78) 02/12/19 18:40 Alkaline Phosphatase 87 U/L (45-117) 02/12/19 18:40 Troponin I < 0.015 ng/ml (0-0.045) 02/12/19 18:40 Total Protein 6.4 gm/dl (6.4-8.2) 02/12/19 18:40 Albumin 3.2 gm/dl (3.4-5.0) L 02/12/19 18:40 Globulin 3.2 gm/dl (2.5-4.0) 02/12/19 18:40 Albumin/Globulin Ratio 1.0 (0.9-2) 02/12/19 18:40 Lipase 75 U/L (73-393) 02/12/19 18:40 Urine Color Yellow 02/12/19 20:00 Urine Appearance Clear (Clear) 02/12/19 20:00 Urine pH 6.5 (4.5-7.5) 02/12/19 20:00 Ur Specific [place] 1.023 (1.000-1.030) 02/12/19 20:00 Urine Protein Negative (Negative) 02/12/19 20:00 Urine Glucose (UA) Negative (Negative) 02/12/19 20:00 Urine Ketones 1+ (Negative) H 02/12/19 20:00 Urine Blood Negative (Negative) 02/12/19 20:00 Urine Nitrite Negative (Negative) 02/12/19 20:00 Urine Bilirubin Negative (Negative) 02/12/19 20:00 Urine Urobilinogen Negative (Negative) 02/12/19 20:00 Ur Leukocyte Esterase 1+ (Negative) H 02/12/19 20:00 Urine WBC (Auto) 10-30 /hpf (0-5) H 02/12/19 20:00 Urine RBC (Auto) 0-4 /hpf (0-4) 02/12/19 20:00 U Hyaline Cast (Auto) 5-10 /lpf (0-5) H 02/12/19 20:00 U Epithel Cells (Auto) >30 /lpf (0-5) H 02/12/19 20:00 Urine Bacteria (Auto) 1+ (Negative) H 02/12/19 20:00 Ur Renal Epithelial Cell Not Reportable 02/12/19 20:00 Urine Mucus Present (None Prsent) A 02/12/19 20:00 Blood Type A Positive 02/12/19 19:22 Antibody Screen NEGATIVE 02/12/19 19:22 Crossmatch See Detail 02/12/19 19:22 Code Status & VTE Plan VTE Prophylaxis Plan VTE Prophylaxis will be ordered: Yes PG Care Time/CCT Total # of Minutes Spent Total Time Spent: 60 Total Time Spent with Patient: Total time spent is greater than 50% in coordination of care (as documented) at patient's floor/unit and/or counseling patient: (1) Anemia Anemia type: unspecified type Qualified Code(s): D64.9 - Anemia, unspecified
[2019-02-13] MEDS ORDERED: MoRPHine SULFATE 2 MG/ML CARP IV PRN (00:16)
[2019-02-13] MEDS ORDERED: SODIUM CHLORIDE 0.9% 250 ML IV PRN (00:16)
[2019-02-13] MEDS ORDERED: ACETAMINOPHEN 325 MG TAB PO PRN (00:16)
[2019-02-13] MEDS ORDERED: ONDANSETRON INJ 2 MG/ML 2 ML VIAL IV PRN (00:16)
[2019-02-13] MEDS ORDERED: LORazepam 0.5 MG/1 ML VIAL IV PRN (00:16)
[2019-02-13] MEDS ORDERED: MoRPHine SULFATE 4 MG/ML 1 ML CARP\\VIAL IV PRN (00:16)
[2019-02-13] MEDS: PANTOprazole 40 MG in DEXTROSE 5% 100 ML IV SCH ×5 (01:45→21:03)
[2019-02-13] MEDS: HEPARIN 100 UNIT/ML 5ML FLUSH FLUSH PRN ×2 (05:05→05:53)
[2019-02-13] MEDS: LEVOTHYROXINE SODIUM 75 MCG TABLET PO SCH (06:29)
[2019-02-13 06:33] LABS: Hematocrit (blood only) 22.3 % (37-47); Hemoglobin 7.9 g/dL (12.0-16.0); Mean Corpuscular Hemoglobin 33.5 pg (25-34); Mean Corpuscular Hgb Conc 35.4 g/dL (32-36); Mean Corpuscular Volume 94.5 fL (80-100); Mean Platelet Volume 9.5 fL (7.4-10.4); Platelet Count 153 K/uL (130-400); RDW Coefficient of Variation 15.7 % (11.5-14.5); RDW Standard Deviation 52.5 fL (36.4-46.3); Red Blood Count 2.36 M/uL (4.2-5.4); White Blood Count 9.85 K/uL (4.8-10.8)
[2019-02-13 07:10] LABS: BUN Creatinine Ratio 8.7 (10-20); Creatinine Clr Calc Pharmacy 45.5 ml/min; Est GFR (African American) 76.1; Est GFR (Non-African American) 65.6; Magnesium 1.8 mg/dl (1.8-2.4); Potassium 3.7 mmol/L (3.5-5.1)
[2019-02-13] MEDS ORDERED: INFLUENZA ADMINISTRATION CHARGE ONE (08:15)
[2019-02-13] MEDS ORDERED: INFLUENZA VACCINE HIGH DOSE 65+ 0.5 ML SYR IM ONE (08:15)
[2019-02-13] MEDS: FLUOXETINE HCL 20 MG CAP PO SCH (10:15)
[2019-02-13] MEDS: ATENOLOL 25 MG TABLET PO SCH (10:15)
[2019-02-13] MEDS: FERROUS GLUCONATE 324 MG TAB PO SCH (10:15)
--- NOTE | 2019-02-13 10:28 | Gastrointestinal Consultation ---
Date of Consultation February 13, 2019 Assessment & Plan (1) Anemia: Likely related to chemotherapy. Patient has been transfused 1 unit PRBCs. H/H presently 7.9/22.3. Heme positive, however has had diarrhea since chemotherapy. No gross GI bleeding. -Monitor H/H -Continue to monitor for gross GI bleeding -Protonix 40 mg BID to prophylactically treat for gastritis/PUD -Would avoid endoscopic evaluation at present due to deconditioning and lack of overt bleeding. Should endoscopy become necessary, can facilitate as an outpatient. Thank you for allowing us to participate in the care of this patient. If you should have any further questions or concerns, do not hesitate to contact us at extension [phone] or [phone]. Present on Admission?: Yes Supervising Physician Co-Signing Physician Notes I personally evaluated the patient and agree with the findings as documented by YOHANA Cantu Exam: abd: soft, nt, nd History of Present Illness Reason for Consultation: anemia Attending Physician: Odilon Dickson History of Present Illness Patient is a 74 yo female with a PMH of CAD, HTN, hypothyroidism, HLD, depression, anxiety, who is currently undergoing chemotherapy for breast cancer. She recently completed a recent round of chemotherapy after which she was dehydrated and experienced nausea, vomiting, & diarrhea. She reports that her nausea, vomiting, and diarrhea are resolved at present. She is eager to go home. Her H/H is presently 7.9/22.3 which per chart review appears to be consistent with each of her chemo treatments. After experiencing diarrhea, she had a positive hemoccult. Because of this GI has been asked to evaluate the patient's anemia. She denies melena or hematochezia. Denies hematemesis. She denies abdominal pain, heartburn, reflux. She denies family history of GI malignancy. She denies NSAID use. Allergies Allergy/AdvReac Type Severity Reaction Status Date / Time No Known Allergies Allergy Unverified 02/12/19 21:55 Home Medications Home Medications Medication Instructions Recorded Confirmed Type atenolol 25 mg tablet 25 mg PO DAILY #90 tab 11/20/18 02/12/19 Rx calcium citrate 250 mg 1 tab PO DAILY tab 11/20/18 02/12/19 History calcium-vitamin D3 200 unit tablet cyanocobalamin (vit B-12) 500 mcg 500 mcg PO DAILY #30 tab 11/20/18 02/12/19 Rx tablet ferrous gluconate 240 mg (27 mg 240 mg PO DAILY tab 11/20/18 02/12/19 History iron) tablet fluoxetine 20 mg capsule 20 mg PO DAILY #30 cap 11/20/18 02/12/19 Rx multivitamin tablet 1 tab PO DAILY 11/20/18 02/12/19 History levothyroxine 75 mcg tablet 75 mcg PO DAILY #30 tab 11/28/18 02/12/19 Rx ondansetron HCl [Zofran] 8 mg PO Q8 PRN 02/12/19 02/12/19 History promethazine 25 mg PO Q6 PRN 02/12/19 02/12/19 History Patient History Medical History Coronary disease Renal insufficiency, mild Infiltrating duct adenocarcinoma Impaired fasting glucose Hypothyroidism Hypertension Dyslipidemia Depression with anxiety Anemia, chronic disease Surgical History History of tubal ligation History of shoulder surgery History of oral surgery tooth extraction History of dilation and curettage History of cataract surgery Family History Father Coronary heart disease Mother Lung cancer Social History Preferred Language: Bangladeshi Communication Ability: Effective Work Car Operator Required: No Beliefs That Will Affect Care: None marital status: Current Living Situation: Spouse Feels Safe at Home: Yes Smoking Status: Never smoker Hx Alcohol Use: Yes Alcohol type: wine Hx Substance Use: No Review of Systems Constitutional: no fever and no chills Eyes: no acute issues Ear, Nose, Mouth, Throat: no acute issues Respiratory: no cough and no dyspnea Cardiovascular: no chest pain Gastrointestinal: no abdominal pain, no bloating, no nausea, no vomiting, no hematemesis, no diarrhea/loose stools, no blood in stools and no melena Musculoskeletal: no acute issues Integumentary: no acute issues Psychiatric: no acute issues Endocrine: + fatigue Physical Exam Constitutional: WD/WN, vitals as above Eyes: PERRL, normal conjunctivae ENMT: external ear and nose normal, oropharynx normal Respiratory: normal respiratory effort, lungs clear to auscultation Cardiovascular: Rate/Rhythm: regular rate and regular rhythm Gastrointestinal (Abdomen): normal bowel sounds, soft, nontender, no hepatosplenomegaly Musculoskeletal: no clubbing or cyanosis Skin: no rashes, warm and dry Psychiatric: A+Ox3, euthymic affect Results & Data Vital Signs (Past 12 Hours) Vital Signs Temp Pulse Pulse Pulse Resp BP BP 02/13/19 07:38 36.5 C 65 20 129/68 02/13/19 04:05 36.7 C 67 18 134/58 L 02/13/19 04:00 36.7 C 67 18 134/58 L 02/13/19 03:45 36.4 C L 71 18 115/67 02/13/19 02:45 36.4 C L 71 16 127/74 02/13/19 02:15 36.3 C L 68 18 130/72 02/13/19 02:00 36.5 C 64 16 128/71 02/13/19 01:39 36.7 C 73 16 146/72 H 02/13/19 00:16 72 02/13/19 00:05 36.5 C 78 16 02/12/19 23:34 36.4 C L 72 13 02/12/19 22:45 71 12 02/12/19 22:30 72 12 BP Pulse Ox 02/13/19 07:38 100 02/13/19 04:05 97 02/13/19 04:00 97 02/13/19 03:45 97 02/13/19 02:45 98 02/13/19 02:15 98 02/13/19 02:00 99 02/13/19 01:39 98 02/13/19 00:16 02/13/19 00:05 147/80 H 100 02/12/19 23:34 129/66 97 02/12/19 22:45 02/12/19 22:30 PG Care Time/CCT Total # of Minutes Spent Total Time Spent with Patient: Total time spent is greater than 50% in coordination of care (as documented) at patient's floor/unit and/or counseling patient: (1) Anemia Anemia type: unspecified type Qualified Code(s): D64.9 - Anemia, unspecified
[2019-02-13 13:17] LABS: Hematocrit (blood only) 23.9 % (37-47); Hemoglobin 8.5 g/dL (12.0-16.0)
[2019-02-13 18:49] LABS: Hematocrit (blood only) 23.8 % (37-47); Hemoglobin 8.4 g/dL (12.0-16.0)
--- NOTE | 2019-02-13 20:31 | Hospitalist Progress Note ---
Date of Service February 13, 2019 Assessment & Plan (1) Acute blood loss anemia: Heme+ stool, abd pain, drop in Hb to 6.9 in context of chronic anemia (baseline 8-9 Hb) - concerning for GI blood loss - perhaps gastritis vs PUD vs other. Seen by GI - no EGD planned; treat empirically. Currently on PPI drip; transition to PO PPI in am. Rx 40mg BID of protonix at discharge +/- carafate x 1 week. s/p 1unit PRBCs overnight - tolerated well. Started on clears today. Advance to full liquids in AM if stable H/H. Cont serial H/H's. Iron at d/c. (2) Acute on chronic anemia: as above in "acute blood loss anemia" baseline Hb about 8-9. (3) Hypomagnesemia: s/p replacement level today wnl (4) Heme positive stool: suspect upper GI source as noted above PPI EGD deferred by GI for now serial H/H's (5) Diffuse abdominal pain: gastritis vs PUD vs other. IMPROVED. serial exams. PPI. clear liquid diet today. CT abd/pelvis with hyperemic gastric wall - this could be suggestive of gastritis. Also with ? enteritis but not having diarrhea at this time. Did have diarrhea at home potentially from recent chemo for breast ca. Supportive care. (6) Hypothyroidism: TSH was mildly low in June Recommend repeat as outpatient (7) Hypertension: cont atenolol controlled (8) Breast cancer: followed by [facility] has appt with [facility] tomorrow (9) Chronic kidney disease, stage 3a: Cr stable today Baseline CrCl 40s (10) DVT prophylaxis: SCDs pebbles updated at bedside today anticipate d/c in am if H and H's are stable and no abd pain/evidence of GI bleeding Subjective patient denies abdominal pain. no nausea or emesis. tolerating clears. seen by GI - no EGD planned. denies use of NSAIDs or aspirin. patient quite upset - states "I have to get out of here. I have an important appointment at [facility] tomorrow that I cannot miss." daughters (2) updated at bedside about 1830 today. Review of Systems Constitutional: no fever Respiratory: no dyspnea Cardiovascular: no chest pain, no orthopnea, no paroxysmal nocturnal dyspnea and no edema Gastrointestinal: no abdominal pain, no nausea and no vomiting Physical Exam Constitutional: + thin; no acute distress ENMT: external ear and nose normal, oropharynx normal Respiratory: normal respiratory effort, lungs clear to auscultation Cardiovascular: Rate/Rhythm: regular rate and regular rhythm Heart Sounds: normal S1 and normal S2; no murmur Vessels: posterior tibial pulses present and dorsalis pedis pulses present; no JVD Extremities: no edema Gastrointestinal (Abdomen): normal bowel sounds, soft, nontender, no hepatosplenomegaly Psychiatric: Orientation: alert Results & Data Vital Signs (Past 12 Hours) Vital Signs Temp Pulse Resp BP BP Pulse Ox 02/13/19 19:33 36.9 C 66 11 L 123/65 99 02/13/19 15:08 36.4 C L 64 20 115/67 98 02/13/19 11:06 36.7 C 63 16 130/67 99 Laboratory Results Laboratory Results - last 24 hr 02/12/19 02/12/19 02/13/19 19:22 20:00 05:57 WBC 9.85 RBC 2.36 L Hgb 7.9 L Hct 22.3 L MCV 94.5 MCH 33.5 MCHC 35.4 RDW Std Deviation 52.5 H RDW Coeff of Ricki 15.7 H Plt Count 153 MPV 9.5 Sodium Potassium Chloride Carbon Dioxide Anion Gap BUN Creatinine Est Cr Clr Drug Dosing Est GFR ( Amer) Est GFR (Non-Af Amer) BUN/Creatinine Ratio Glucose Calcium Magnesium Urine Color Yellow Urine Appearance Clear Urine pH 6.5 Ur Specific [place] 1.023 Urine Protein Negative Urine Glucose (UA) Negative Urine Ketones 1+ H Urine Blood Negative Urine Nitrite Negative Urine Bilirubin Negative Urine Urobilinogen Negative Ur Leukocyte Esterase 1+ H Urine WBC (Auto) 10-30 H Urine RBC (Auto) 0-4 U Hyaline Cast (Auto) 5-10 H U Epithel Cells (Auto) >30 H Urine Bacteria (Auto) 1+ H Ur Renal Epithelial Cell Not Reportable Urine Mucus Present A Blood Type A Positive Antibody Screen NEGATIVE Crossmatch See Detail 02/13/19 02/13/19 02/13/19 05:57 13:07 18:33 WBC RBC Hgb 8.5 L 8.4 L Hct 23.9 L 23.8 L MCV MCH MCHC RDW Std Deviation RDW Coeff of Ricki Plt Count MPV Sodium 136 Potassium 3.7 Chloride 103 Carbon Dioxide 27 Anion Gap 6.0 BUN 7 Creatinine 0.86 Est Cr Clr Drug Dosing 45.5 Est GFR ( Amer) 76.1 Est GFR (Non-Af Amer) 65.6 BUN/Creatinine Ratio 8.7 L Glucose 83 Calcium 8.0 L Magnesium 1.8 Urine Color Urine Appearance Urine pH Ur Specific [place] Urine Protein Urine Glucose (UA) Urine Ketones Urine Blood Urine Nitrite Urine Bilirubin Urine Urobilinogen Ur Leukocyte Esterase Urine WBC (Auto) Urine RBC (Auto) U Hyaline Cast (Auto) U Epithel Cells (Auto) Urine Bacteria (Auto) Ur Renal Epithelial Cell Urine Mucus Blood Type Antibody Screen Crossmatch PG Care Time/CCT Total # of Minutes Spent Total Time Spent with Patient: Total time spent is greater than 50% in coordination of care (as documented) at patient's floor/unit and/or counseling patient: (1) Hypothyroidism Hypothyroidism type: acquired Qualified Code(s): E03.9 - Hypothyroidism, unspecified (2) Hypertension Hypertension type: essential hypertension Qualified Code(s): I10 - Essential (primary) hypertension (3) Breast cancer Breast location: unspecified site of breast Estrogen receptor status: positive Patient sex: female Laterality: right Qualified Code(s): C50.911 - Malignant neoplasm of unspecified site of right female breast; Z17.0 - Estrogen receptor positive status [ER+]
[2019-02-14] MEDS: PANTOprazole 40 MG in DEXTROSE 5% 100 ML IV SCH (02:19)
[2019-02-14] MEDS: HEPARIN 100 UNIT/ML 5ML FLUSH FLUSH PRN ×2 (06:00→08:57)
[2019-02-14] MEDS: LEVOTHYROXINE SODIUM 75 MCG TABLET PO SCH (06:19)
[2019-02-14 06:37] LABS: Hematocrit (blood only) 23.6 % (37-47); Hemoglobin 8.2 g/dL (12.0-16.0); Mean Corpuscular Hemoglobin 32.7 pg (25-34); Mean Corpuscular Hgb Conc 34.7 g/dL (32-36); Mean Platelet Volume 9.1 fL (7.4-10.4); Platelet Count 159 K/uL (130-400); RDW Coefficient of Variation 15.9 % (11.5-14.5); RDW Standard Deviation 54.5 fL (36.4-46.3); Red Blood Count 2.51 M/uL (4.2-5.4); White Blood Count 6.58 K/uL (4.8-10.8)
[2019-02-14 07:10] LABS: BUN Creatinine Ratio 8.6 (10-20); Calcium 8.5 mg/dl (8.5-10.1); Est GFR (Non-African American) 61.3; Potassium 3.7 mmol/L (3.5-5.1)
[2019-02-14] MEDS ORDERED: PANTOprazole 40 MG TAB PO STA (07:21)
[2019-02-14] MEDS ORDERED: SUCRALFATE 1 GM/10 ML UDC PO STA (07:21)
--- NOTE | 2019-02-14 07:42 | Discharge Summary ---
Date of Service date of admission - February 12, 2019 date of discharge - February 14, 2019 Admission HPI Per Admitting Provider 74 y/o female presented to the ED with intermittent abdominal pain of 1 week duration. She has had nausea and loss of appetite, but reports that this is common after chemotherapy treatments. She has not had fever, chills, cough, diarrhea, chest pain or SOB. She does report feeling tired. No reported black stools or bloody stool. In the ED her stool was heme Positive. Principal Diagnosis acute blood loss anemia Discharge Exam Constitutional + thin; no acute distress ENMT external ear and nose normal, oropharynx normal Respiratory normal respiratory effort, lungs clear to auscultation Cardiovascular Rate/Rhythm: regular rate and regular rhythm Heart Sounds: normal S1 and normal S2; no murmur Vessels: posterior tibial pulses present and dorsalis pedis pulses present; no JVD Extremities: no edema Gastrointestinal (Abdomen) normal bowel sounds, soft, nontender, no hepatosplenomegaly Psychiatric Orientation: alert and oriented x 3 Discharge Data Allergies Allergy/AdvReac Type Severity Reaction Status Date / Time No Known Allergies Allergy Unverified 02/19/19 16:02 Consultations [facility] Gastroenterology Procedures Performed 1 unit PRBCs Ordered Studies CT abd/pelvis: IMPRESSION: 1. There is fluid seen throughout the normal caliber small bowel loops. No bowel wall thickening is identified, and the appearance suggests a nonspecific enteritis. Clinical correlation will be required. 2. A left inguinal hernia contains a nonobstructed loop of small bowel. 3. The gastric mucosa appears thickened and hyperemic. Correlate clinically for evidence of gastritis. Hospital Course (1) Acute blood loss anemia: Heme+ stool, abd pain, drop in Hb to 6.9 at presentation in context of chronic anemia (baseline 8-9 Hb) - concerning for GI blood loss - perhaps gastritis vs PUD vs other. Possible gastritis seen on CT abd/pelvis at admission as well. Seen by GI - no EGD planned; treated empirically with IV PPI drip. At discharge will take 40mg BID of protonix + carafate x 1 week. s/p 1unit PRBCs this admission. Discharge hemoglobin was 8.2. Ultimately restarted on clears then advanced to full liquids on day of discharge. Tolerated such. Asked to GO SLOWLY with her diet advancement in the days following discharge. Recommended iron supplementation twice daily at discharge for 2-3 months. (2) Acute on chronic anemia: as above in "acute blood loss anemia" baseline Hb about 8-9. (3) Hypomagnesemia: s/p replacement level normal at discharge (4) Heme positive stool: suspect upper GI source as noted above PPI EGD deferred by GI for now serial H/H's were stable following 1 unit PRBCs on hospital day #1 (5) Diffuse abdominal pain: gastritis vs PUD vs enteritis vs other. IMPROVED with PPI. CT abd/pelvis with hyperemic gastric wall - this could be suggestive of gastritis. Also with ? enteritis but did not have diarrhea during the visit. (Did have diarrhea at home potentially from recent chemo for breast ca). (6) Hypothyroidism: TSH was mildly low in June 2018 Recommend repeat as outpatient (7) Hypertension: cont atenolol controlled during the hospitalization (8) Breast cancer: followed by [facility] and [facility] in [place] has appt with [facility] on day of discharge for her cancer (9) Chronic kidney disease, stage 3a: Cr stable during the visit; discharge Cr was 0.9 Baseline CrCl 40s Total Time Total Time Spent Total Time Spent (In Minutes): 40 Total Time Includes: Examination of the Patient, Discharge Planning and Medication Reconciliation Discharge Plan Discharge Items Patient Disposition: Home - Self-Care Reason For Visit: SYMPTOMATIC ANEMIA Discharge Diagnosis: 1. anemia with traces of blood in stool - question of gastritis vs stomach ulcer vs other 2. need for 1 unit of blood 3. abdominal pain - likely due to the cause of #1 above - improved Goals: 1. relieve abdominal pain 2. improve anemia Activity: As commented below Activity Comment: take it easy next 2-3 days, then gradually increase activities Exercise/Sports: Gradually increase as tolerated Driving/Machine Use: Resume 1 day after discharge Non-emergency contact: Primary Care Provider Call non-emergency contact if: you have any medication questions, your symptoms worsen, your pain is not controlled, your pain is worsening, your pain is unusual for you, your pain is concerning for you and you have a fever Follow-up/Referrals: Jaqueline Veliz CRNP [Primary Care Provider] - (see Ms Keren within 5 days - you will need a repeat CBC at that time) Ricky Jerome DO [Physician] - (contact Dr Jerome's office with any GI concerns; follow-up as needed with him or his physician assistants ) Diet: Full liquid Addtl Attending Provider Instructions: You were admitted for abdominal pain and severe anemia (low red blood cell count). Your hemoglobin at time of admission was 6.9. You received 1 unit of blood. Following the blood transfusion your hemoglobin improved to the low 8's and remained at that level for 36 hours. Your hemoglobin on the morning of discharge was 8.2. The [facility] Gastrointestinal Doctor saw you in consult. They recommended use of acid reducers. Without an upper endoscopy we cannot tell you with certainty what the abdominal pain was from but we suspect gastritis (or ulcer). Both will heal with acid reducers. Recommendations - 1. TAKE pantoprazole 40mg twice daily every day. This is an acid inside sales coordinator. 2. TAKE sucralfate 1 gram 30 minutes before meals and also at bedtime for 1 week. This medication helps promote healing in your stomach. 3. INCREASE your ferrous sulfate (iron supplement) to twice a day. Know that iron can cause constipation and make your stools look dark. 4. Diet - * please follow a full liquids diet TODAY; full liquids diet includes all liquids including dairy products and cream-based soups * later tonight and into tomorrow you can gradually introduce more regular foods/solids * for the next 7-10 days avoid excessive amounts of caffeinated beverages (soda, tea, coffee, etc) * for the next 7-10 days avoid spicy foods, fried foods, red sauces, orange juice, acidic foods, etc * for the next 7-10 days please avoid all forms of alcohol 5. You will need a repeat CBC (blood count) THIS TUESDAY to ensure stability of your hemoglobin/red cells. You can have this drawn at your family doctor's office. Be sure to bring the lab slip with you. 6. AVOID aspirin, motrin, ibuprofen, naprosyn, alleve as these can cause stomach upset, irritation of the stomach, etc. TYLENOL IS OK AND DOES NOT CAUSE STOMACH ISSUES. 7. Follow-up - * see the doctors at [facility] today as scheduled * see Jaqueline Veliz within 5-7 days * have your CBC drawn this Tuesday as noted above 8. Return to [facility] if - * you have recurrent and/or worsening abdominal pain * you see dark, tarry, black stools * you have significant dizziness/lightheadedness/weakness * you have fevers over 100.5 degrees * you have vomiting that won't respond to your nausea medications * you have inability to eat/drink * any other concerns Pending Studies at Discharge: No Stand-Alone Forms: Call Back Authorization, My [facility] Medications and DC Order Prescriptions: Continued calcium citrate-vitamin D3 [Citracal Regular] 250 mg calcium- 200 unit tablet 1 tab PO DAILY RF: 0 multivitamin [Daily Multiple] tablet 1 tab PO DAILY RF: 0 atenolol 25 mg tablet 25 mg PO DAILY Qty: 90 RF: 0 cyanocobalamin (vitamin B-12) 500 mcg tablet 500 mcg PO DAILY Qty: 30 RF: 0 fluoxetine 20 mg capsule 20 mg PO DAILY Qty: 30 RF: 0 levothyroxine 75 mcg tablet 75 mcg PO DAILY Qty: 30 RF: 5 ondansetron HCl [Zofran] 8 mg tablet 8 mg PO Q8 PRN (Reason: Nausea) RF: 0 promethazine 25 mg tablet 25 mg PO Q6 PRN (Reason: Nausea) RF: 0 Changed ferrous gluconate 240 mg (27 mg iron) tablet 240 mg PO BID Qty: 60 RF: 0 No Action buspirone 7.5 mg tablet 7.5 mg PO TID PRNRF: 0 Discharge Orders: Discharge Order (Routine); Ordered 02/14/19 Ordered By: Odilon Dickson Admission Data Admit Date/Time: 02/12/19 22:21 Attending Provider: Odilon Dickson Admit Provider: Kar Martins Primary Care Provider: Jaqueline Veliz Other Providers: Kar Martins ; Ricky Jerome Other Interventions: Discharge Summary Assessment (RN) Last Done: 02/14/19 08:32 DC Date/Time DO NOT enter until pt leaves facility: 02/14/19 09:15
[2019-02-14] MEDS: FERROUS GLUCONATE 324 MG TAB PO SCH (07:43)
[2019-02-14] MEDS: FLUOXETINE HCL 20 MG CAP PO SCH (07:44)
[2019-02-14] MEDS: ATENOLOL 25 MG TABLET PO SCH (07:45)
== END 2019-02-14 09:15 | disposition home or self-care (01) | DRG 811 ==
LOC: ED 16:08 → INTOOBSV 22:21 → OBSVTOIN 22:21 → SUATTDRO 22:21 → 2W 22:21